=== PATIENT | male | born 1945 | race Caucasian/White ===

== ENCOUNTER 2018-01-15 06:00 | Inpatient (IN) | payer MEDICARE ==
[~2018-01-15] VITALS: Ht 177.8 cm; Wt 85.3 kg
[~2018-01-15 06:00] MED LIST: AMLO5TAB2 PO; ASPI-555 PO; BETA1TAB18 PO; FINA5TAB41 PO; OMEP40CA37 PO; ROSU10TA PO; SOTA80TA PO; WARF4TAB72 PO
[2018-01-15] MEDS ORDERED: SODIUM CHLORIDE 0.9% 1000ML 1,000 ML IV ONE (06:41)
[2018-01-15 07:10] VITALS: BP 135/94
[2018-01-15] MEDS ORDERED: PROPOFOL 10 MG/ML 20ML VIAL IV ONE ×2 (08:10→08:27)
[2018-01-15] MEDS ORDERED: PHENYLEPHRINE HCL 10 MG/ML 1ML VIAL IV ONE (08:24)
[2018-01-15] MEDS ORDERED: SODIUM CHLORIDE 0.9% 10 ML VIAL ONE (08:25)
[2018-01-15 08:43] VITALS: BP 116/84
[2018-01-15 09:13] VITALS: BP 139/92
[2018-01-15] MEDS ORDERED: LACTULOSE 20 GM/30 ML UDCUP PO PRN (11:30)
[2018-01-15] MEDS ORDERED: HYDRALAZINE HCL 20 MG/ML VIAL IV PRN (11:30)
[2018-01-15] MEDS ORDERED: GUAIFENESIN-DM 200/20 MG 10 ML PO PRN (11:30)
[2018-01-15] MEDS ORDERED: ACETAMINOPHEN-CODEINE 300/30MG TAB PO PRN (11:30)
[2018-01-15] MEDS ORDERED: ONDANSETRON HCL 4 MG/2 ML VIAL IV PRN (11:30)
[2018-01-15] MEDS ORDERED: MAG HYDROX/AL HYDROX/SIMETH ES 30 ML SUSP UDCUP PO PRN (11:30)
[2018-01-15] MEDS ORDERED: NITROGLYCERIN 0.4 MG SL TAB SL PRN (11:30)
[2018-01-15] MEDS ORDERED: MORPHINE SULFATE 4 MG/1ML SYG IV PRN (11:30)
[2018-01-15] MEDS ORDERED: ACETAMINOPHEN 325 MG TAB PO PRN ×2 (11:30)
[2018-01-15] MEDS ORDERED: ONDANSETRON HCL MDV 20ML 2 MG/ML VIAL IV PRN (11:44)
[2018-01-15] MEDS ORDERED: DEXTROSE 5 %-0.45 % NACL 1,000 ML IV SCH (12:23)
[2018-01-15 13:23] VITALS: BP 150/99
[2018-01-15] MEDS ORDERED: DIATR MEGLU/DIATRIZOATE SODIUM 30 ML BOTTLE ONE (13:32)
[2018-01-15 14:31] LABS: RETICULOCYTE % (AUTO) 1.43 % (0.42-2.23)
[2018-01-15 14:34] LABS: HEMATOCRIT 39.8 % (36-48); MEAN CORPUSCULAR HEMOGLOBIN 22.5 pg (27.0-33.0); MEAN CORPUSCULAR HGB CONC 31.5 g/dL (32.0-36.0); MEAN CORPUSCULAR VOLUME 71.5 fL (79-99); PLATELET COUNT (AUTO) 277 K/uL (130-400); RED BLOOD CELL COUNT(AUTO) 5.57 MIL/uL (4.00-5.50); RED CELL DISTRIBUTION WIDTH 18.7 % (11.0-15.5); WHITE BLOOD COUNT (AUTO) 10.3 K/uL (4.8-10.8)
[2018-01-15 14:52] LABS: INR 1.18 (0.85-1.15); PARTIAL THROMBOPLASTIN TIME 27.6 SEC (26.3-35.5); PROTHROMBIN TIME 12.4 SEC (9.6-11.6)
[2018-01-15 14:53] LABS: FERRITIN 12 ng/mL (15-150); IRON, SERUM 24 mcg/dL (50-170); TOTAL IRON BINDING CAPACITY 399 mcg/dL (250-450)
[2018-01-15 15:00] LABS: BASOPHILS % (MANUAL) 2 % (0-2); EOSINOPHILS % (MANUAL) 2 % (1-6); LYMPHOCYTES % (MANUAL) 5 % (22-44); MONOCYTES % (MANUAL) 15 % (2-9); SEGMENTED NEUTROPHILS % 76 % (40-70)
[2018-01-15 15:01] LABS: PLATELET MORPHOLOGY COMMENT ADEQUATE
[2018-01-15 15:15] LABS: ALBUMIN 3.8 g/dL (3.5-5.0); BILIRUBIN,TOTAL 0.9 mg/dL (0.2-1.0); CREATININE 0.9 mg/dL (0.5-1.5); POTASSIUM 4.8 mmol/L (3.5-5.1); TOTAL PROTEIN, SERUM 7.3 g/dL (6.0-8.3)
[2018-01-15] MEDS ORDERED: HEPARIN SODIUM 5000UNIT/ML 1ML VIAL ONE (15:42)
[2018-01-15] MEDS ORDERED: HEPARIN 25000 UNITS/250 ML D5W 250 ML IV ONE (15:42)
[2018-01-15 16:00] VITALS: BP 127/82
[2018-01-15] MEDS ORDERED: IOPAMIDOL-370 75 ML VIAL IV ONE (16:18)
[2018-01-15] MEDS ORDERED: LORA0.5T2 PO (16:29)
[2018-01-15 19:00] VITALS: BP 125/80
[2018-01-15] MEDS: FAMOTIDINE/PF 20 MG/2 ML VIAL IV SCH (20:32)
[2018-01-15 21:24] LABS: APPEARANCE,URINE Clear (CLEAR); BILIRUBIN,URINE Negative (NEGATIVE); COLOR,URINE Yellow (YELLOW); GLUCOSE, URINE (UA) Negative (NEGATIVE); KETONES,URINE Negative (NEGATIVE); LEUKOCYTE ESTERASE ,URINE Negative (NEGATIVE); NITRATE,URINE Negative (NEGATIVE); OCCULT BLOOD,URINE Negative (NEGATIVE); PH,URINE 6.5 (5.0-8.0); PROTEIN,URINE Negative (NEGATIVE); UROBILINOGEN,URINE 0.2 mg/dL (0.2-1.0)
[2018-01-15 22:24] LABS: INR 1.24 (0.85-1.15)
[2018-01-15 22:38] LABS: PARTIAL THROMBOPLASTIN TIME 96.8 SEC (26.3-35.5)
[2018-01-16] VITALS: BP 134/78
[2018-01-16 03:46] LABS: HEMATOCRIT 36.1 % (36-48); MEAN CORPUSCULAR HEMOGLOBIN 22.4 pg (27.0-33.0); MEAN CORPUSCULAR HGB CONC 31.7 g/dL (32.0-36.0); MEAN CORPUSCULAR VOLUME 70.5 fL (79-99); PLATELET COUNT (AUTO) 232 K/uL (130-400); RED BLOOD CELL COUNT(AUTO) 5.12 MIL/uL (4.00-5.50); RED CELL DISTRIBUTION WIDTH 18.5 % (11.0-15.5); WHITE BLOOD COUNT (AUTO) 9.8 K/uL (4.8-10.8)
[2018-01-16 04:00] VITALS: BP 136/76
[2018-01-16 04:00] LABS: POTASSIUM 3.4 mmol/L (3.5-5.1)
[2018-01-16 08:00] VITALS: BP 142/88
[2018-01-16] MEDS: FAMOTIDINE/PF 20 MG/2 ML VIAL IV SCH ×2 (08:26→20:33)
[2018-01-16] MEDS: SOTALOL HCL 80 MG TABLET PO SCH ×2 (08:26→20:32)
[2018-01-16] MEDS ORDERED: SOTALOL HCL 80 MG TABLET PO SCH (09:00)
[2018-01-16] MEDS ORDERED: HEPARIN 25000 UNITS/250 ML D5W 250 ML IV ONE (09:47)
[2018-01-16 12:00] VITALS: BP 127/77
[2018-01-16 16:00] VITALS: BP 136/86
[2018-01-16 19:57] VITALS: BP 151/90
[2018-01-16] MEDS: FINASTERIDE 5 MG TABLET PO SCH (20:33)
[2018-01-17] VITALS: BP 132/82
[2018-01-17 04:00] VITALS: BP 128/62
[2018-01-17 05:13] LABS: HEMATOCRIT 35.8 % (36-48); MEAN CORPUSCULAR HEMOGLOBIN 23.2 pg (27.0-33.0); MEAN CORPUSCULAR HGB CONC 33.1 g/dL (32.0-36.0); MEAN CORPUSCULAR VOLUME 70.3 fL (79-99); PLATELET COUNT (AUTO) 207 K/uL (130-400); WHITE BLOOD COUNT (AUTO) 7.1 K/uL (4.8-10.8)
[2018-01-17 05:21] LABS: POTASSIUM 3.4 mmol/L (3.5-5.1)
[2018-01-17 05:23] LABS: BAND NEUTROPHILS % (MANUAL) 6 % (0-2); EOSINOPHILS % (MANUAL) 1 % (1-6); LYMPHOCYTES % (MANUAL) 13 % (22-44); MAN.DIFF COMMENT-IMPRESSION MANUAL DIFFERENTIAL; MONOCYTES % (MANUAL) 13 % (2-9); PLATELET MORPHOLOGY COMMENT ADEQUATE; SEGMENTED NEUTROPHILS % 67 % (40-70)
[2018-01-17] MEDS: HEPARIN 25000 UNITS/250 ML D5W 250 ML IV PRN (05:38)
[2018-01-17 08:44] VITALS: BP 135/85
[2018-01-17] MEDS: [UNRECOGNIZED DRUG - OTHER] PO SCH (09:00)
[2018-01-17] MEDS: LUTEIN PO SCH (09:00)
[2018-01-17] MEDS: SOTALOL HCL 80 MG TABLET PO SCH ×3 (09:00→21:09)
[2018-01-17] MEDS: VIT A C PO SCH (09:00)
[2018-01-17] MEDS: AMLODIPINE BESYLATE 5 MG TAB PO SCH (09:00)
[2018-01-17] MEDS: MINERALS PO SCH (09:00)
[2018-01-17 10:24] LABS: HEMATOCRIT 36.9 % (36-48); MEAN CORPUSCULAR HGB CONC 32.2 g/dL (32.0-36.0); MEAN CORPUSCULAR VOLUME 71.4 fL (79-99); PLATELET COUNT (AUTO) 220 K/uL (130-400); RED BLOOD CELL COUNT(AUTO) 5.16 MIL/uL (4.00-5.50); RED CELL DISTRIBUTION WIDTH 18.6 % (11.0-15.5); WHITE BLOOD COUNT (AUTO) 6.1 K/uL (4.8-10.8)
[2018-01-17] MEDS: FAMOTIDINE/PF 20 MG/2 ML VIAL IV SCH ×2 (10:44→21:09)
[2018-01-17] MEDS: PANTOPRAZOLE SODIUM 40 MG TABLET.DR PO SCH (10:44)
[2018-01-17 11:27] VITALS: BP 139/90
[2018-01-17 15:28] VITALS: BP 132/79
[2018-01-17 16:23] LABS: HEMATOCRIT 37.5 % (36-48)
[2018-01-17 19:00] VITALS: BP 132/80
[2018-01-17] MEDS: FINASTERIDE 5 MG TABLET PO SCH (21:09)
[2018-01-18] VITALS (7 sets, daily range): BP systolic 122–145; BP diastolic 78–92
[2018-01-18 00:26] LABS: HEMATOCRIT 36.3 % (36-48)
[2018-01-18 06:58] LABS: HEMATOCRIT 37.8 % (36-48)
[2018-01-18] MEDS: FAMOTIDINE/PF 20 MG/2 ML VIAL IV SCH ×2 (08:55→19:45)
[2018-01-18] MEDS: SOTALOL HCL 80 MG TABLET PO SCH ×2 (08:56→19:45)
[2018-01-18] MEDS: MINERALS PO SCH (08:56)
[2018-01-18] MEDS: LUTEIN PO SCH (08:56)
[2018-01-18] MEDS: [UNRECOGNIZED DRUG - OTHER] PO SCH (08:56)
[2018-01-18] MEDS: PANTOPRAZOLE SODIUM 40 MG TABLET.DR PO SCH (08:56)
[2018-01-18] MEDS: VIT A C PO SCH (08:56)
[2018-01-18] MEDS: AMLODIPINE BESYLATE 5 MG TAB PO SCH (08:57)
[2018-01-18] MEDS ORDERED: MAGNESIUM CITRATE 296 ML SOLUTION PO SCH (12:00)
[2018-01-18 12:07] LABS: HEMATOCRIT 37.8 % (36-48)
[2018-01-18] MEDS: HEPARIN 25000 UNITS/250 ML D5W 250 ML IV PRN ×2 (12:22→13:58)
[2018-01-18 18:04] LABS: HEMATOCRIT 40.2 % (42-54)
[2018-01-18] MEDS: FINASTERIDE 5 MG TABLET PO SCH (19:45)
[2018-01-18] MEDS ORDERED: ATORVASTATIN CALCIUM 40 MG TABLET PO SCH (21:00)
[2018-01-19] VITALS (25 sets, daily range): BP systolic 99–148; BP diastolic 65–96
[2018-01-19 00:48] LABS: HEMATOCRIT 38.1 % (42-54)
[2018-01-19] MEDS: SOTALOL HCL 80 MG TABLET PO SCH ×2 (05:42→20:22)
[2018-01-19 06:17] LABS: HEMATOCRIT 36.6 % (42-54); MEAN CORPUSCULAR HEMOGLOBIN 22.3 pg (27.0-33.0); MEAN CORPUSCULAR HGB CONC 31.4 g/dL (32.0-36.0); MEAN CORPUSCULAR VOLUME 71.2 fL (79-99); PLATELET COUNT (AUTO) 227 K/uL (130-400); RED BLOOD CELL COUNT(AUTO) 5.14 MIL/uL (4.50-6.20); RED CELL DISTRIBUTION WIDTH 18.7 % (11.0-15.5); WHITE BLOOD COUNT (AUTO) 6.8 K/uL (4.8-10.8)
[2018-01-19 06:23] LABS: POTASSIUM 3.6 mmol/L (3.5-5.1)
[2018-01-19] MEDS: LORAZEPAM 0.5 MG TABLET PO PRN (08:00)
[2018-01-19] MEDS: [UNRECOGNIZED DRUG - OTHER] PO SCH (08:06)
[2018-01-19] MEDS: PANTOPRAZOLE SODIUM 40 MG TABLET.DR PO SCH (08:06)
[2018-01-19] MEDS: VIT A C PO SCH (08:06)
[2018-01-19] MEDS: LUTEIN PO SCH (08:06)
[2018-01-19] MEDS: AMLODIPINE BESYLATE 5 MG TAB PO SCH (08:06)
[2018-01-19] MEDS: MINERALS PO SCH (08:06)
[2018-01-19] MEDS: FAMOTIDINE/PF 20 MG/2 ML VIAL IV SCH (08:08)
[2018-01-19] MEDS ORDERED: LACTATED RINGERS 1000ML 1,000 ML IV ONE (09:26)
[2018-01-19] MEDS ORDERED: CEFOXITIN SODIUM 2 GM VIAL ONE (09:38)
[2018-01-19] MEDS ORDERED: MIDAZOLAM HCL 1 MG/ML 2ML VIAL ONE (09:59)
[2018-01-19] MEDS ORDERED: PROPOFOL 10 MG/ML 20ML VIAL IV ONE (09:59)
[2018-01-19] MEDS ORDERED: GLYCOPYRROLATE 0.2 MG/ML 5 ML VIAL ONE (09:59)
[2018-01-19] MEDS ORDERED: DEXAMETHASONE SOD PHOSPHATE 10MG/ML 1ML VIAL ONE (09:59)
[2018-01-19] MEDS ORDERED: LIDOCAINE PF 2% 5ML ABBOJECT ONE (09:59)
[2018-01-19] MEDS ORDERED: FENTANYL CITRATE PF 50 MCG/1 ML 2ML VIAL ONE ×3 (09:59→12:50)
[2018-01-19] MEDS ORDERED: NEOSTIGMINE 5MG/5ML SYR IV ONE (09:59)
[2018-01-19] MEDS ORDERED: MORPHINE SULFATE 2 MG/ML 1ML SYG IV PRN (13:00)
[2018-01-19 13:29] LABS: MEAN CORPUSCULAR HEMOGLOBIN 22.8 pg (27.0-33.0); MEAN CORPUSCULAR HGB CONC 31.9 g/dL (32.0-36.0); MEAN CORPUSCULAR VOLUME 71.5 fL (79-99); PLATELET COUNT (AUTO) 223 K/uL (130-400); RED CELL DISTRIBUTION WIDTH 18.2 % (11.0-15.5); WHITE BLOOD COUNT (AUTO) 8.1 K/uL (4.8-10.8)
[2018-01-19 13:37] LABS: POTASSIUM 3.6 mmol/L (3.5-5.1)
[2018-01-19] MEDS ORDERED: MEPERIDINE-PF 50 MG/ML SYG ONE (13:39)
[2018-01-19] MEDS: D5W-1/2 NS/20MEQ KCL 1,000 ML IV SCH (14:27)
[2018-01-19] MEDS ORDERED: CEFOXITIN 1GM+NS 100ML 100 ML IV SCH (17:00)
[2018-01-19] MEDS: CEFOXITIN SODIUM 1 GM VIAL IVP SCH ×2 (17:14→23:37)
[2018-01-19] MEDS: MORPHINE SULFATE 4 MG/1ML SYG IV PRN (17:15)
[2018-01-19 18:14] LABS: HEMATOCRIT 38.1 % (42-54)
[2018-01-20] MEDS ORDERED: PHENOL 177 ML BOTTLE PO PRN (00:30)
[2018-01-20] MEDS: D5W-1/2 NS/20MEQ KCL 1,000 ML IV SCH ×2 (02:29→14:48)
[2018-01-20 03:00] VITALS: BP 129/71
[2018-01-20 04:46] LABS: HEMATOCRIT 37.2 % (42-54); LYMPHOCYTES % (AUTO) 5.6 % (21.0-51.0); MEAN CORPUSCULAR HEMOGLOBIN 22.4 pg (27.0-33.0); MEAN CORPUSCULAR HGB CONC 31.4 g/dL (32.0-36.0); MEAN CORPUSCULAR VOLUME 71.4 fL (79-99); MONOCYTES % (AUTO) 5.2 % (3.0-13.0); NEUTROPHILS % (AUTO) 89.2 % (40.0-77.0); PLATELET COUNT (AUTO) 226 K/uL (130-400); RED CELL DISTRIBUTION WIDTH 18.8 % (11.0-15.5); WHITE BLOOD COUNT (AUTO) 23.4 K/uL (4.8-10.8)
[2018-01-20 04:49] LABS: CREATININE 1.1 mg/dL (0.5-1.5); POTASSIUM 3.8 mmol/L (3.5-5.1)
[2018-01-20] MEDS: CEFOXITIN SODIUM 1 GM VIAL IVP SCH (04:50)
[2018-01-20 07:30] VITALS: BP 142/90
[2018-01-20] MEDS: FAMOTIDINE/PF 20 MG/2 ML VIAL IV SCH ×2 (08:40→20:45)
[2018-01-20] MEDS: LORAZEPAM 2 MG/ML 1 ML VIAL IVP PRN ×2 (08:41→18:22)
[2018-01-20] MEDS: METOPROLOL TARTRATE 1 MG/ML 5ML VIAL IV SCH ×3 (08:43→20:53)
[2018-01-20] MEDS: MORPHINE SULFATE 4 MG/1ML SYG IV PRN (10:19)
[2018-01-20 11:00] VITALS: BP 124/80
[2018-01-20 15:00] VITALS: BP 118/81
[2018-01-20 19:35] VITALS: BP_SYST 119; BP_SYST 125; BP_DIAS 69; BP_DIAS 75
[2018-01-20 23:25] VITALS: BP 141/79
[2018-01-21] MEDS: D5W-1/2 NS/20MEQ KCL 1,000 ML IV SCH ×3 (02:23→21:07)
[2018-01-21] MEDS: METOPROLOL TARTRATE 1 MG/ML 5ML VIAL IV SCH ×3 (03:26→14:23)
[2018-01-21 03:40] VITALS: BP 132/82
[2018-01-21 04:43] LABS: BASOPHILS % (AUTO) 0.2 % (0.0-5.0); EOSINOPHILS % (AUTO) 0.1 % (0.0-8.0); HEMATOCRIT 35.2 % (42-54); LYMPHOCYTES % (AUTO) 8.7 % (21.0-51.0); MEAN CORPUSCULAR HEMOGLOBIN 22.9 pg (27.0-33.0); MEAN CORPUSCULAR HGB CONC 32.2 g/dL (32.0-36.0); MEAN CORPUSCULAR VOLUME 71.2 fL (79-99); MONOCYTES % (AUTO) 8.7 % (3.0-13.0); NEUTROPHILS % (AUTO) 82.3 % (40.0-77.0); PLATELET COUNT (AUTO) 215 K/uL (130-400); RED BLOOD CELL COUNT(AUTO) 4.94 MIL/uL (4.50-6.20); RED CELL DISTRIBUTION WIDTH 18.8 % (11.0-15.5); WHITE BLOOD COUNT (AUTO) 18.9 K/uL (4.8-10.8)
[2018-01-21 04:49] LABS: CREATININE 0.9 mg/dL (0.5-1.5); POTASSIUM 4.2 mmol/L (3.5-5.1)
[2018-01-21 08:00] VITALS: BP 152/94
[2018-01-21] MEDS: FAMOTIDINE/PF 20 MG/2 ML VIAL IV SCH ×2 (09:18→21:07)
[2018-01-21] MEDS: LORAZEPAM 2 MG/ML 1 ML VIAL IVP PRN ×2 (09:21→17:15)
[2018-01-21 11:00] VITALS: BP 159/81
[2018-01-21 16:00] VITALS: BP 152/91
[2018-01-21] MEDS ORDERED: METOPROLOL TARTRATE 1 MG/ML 5ML VIAL IV PRN (16:30)
[2018-01-21 19:30] VITALS: BP 156/100
[2018-01-21] MEDS ORDERED: METOPROLOL TARTRATE 1 MG/ML 5ML VIAL IV SCH (20:30)
[2018-01-21 23:25] VITALS: BP 153/91
[2018-01-22] VITALS (12 sets, daily range): BP systolic 126–171; BP diastolic 88–102
[2018-01-22] MEDS ORDERED: METOPROLOL TARTRATE 1 MG/ML 5ML VIAL IV SCH ×2 (02:30→08:30)
[2018-01-22 04:39] LABS: BASOPHILS % (AUTO) 0.3 % (0.0-5.0); EOSINOPHILS % (AUTO) 0.5 % (0.0-8.0); HEMATOCRIT 36.3 % (42-54); LYMPHOCYTES % (AUTO) 17.2 % (21.0-51.0); MEAN CORPUSCULAR HEMOGLOBIN 22.4 pg (27.0-33.0); MEAN CORPUSCULAR HGB CONC 31.7 g/dL (32.0-36.0); MEAN CORPUSCULAR VOLUME 70.6 fL (79-99); MONOCYTES % (AUTO) 11.3 % (3.0-13.0); NEUTROPHILS % (AUTO) 70.7 % (40.0-77.0); NUCLEATED RED BLOOD CELLS 0.1 % (0.0-0.19); PLATELET COUNT (AUTO) 199 K/uL (130-400); RED BLOOD CELL COUNT(AUTO) 5.14 MIL/uL (4.50-6.20); RED CELL DISTRIBUTION WIDTH 18.9 % (11.0-15.5); WHITE BLOOD COUNT (AUTO) 12.7 K/uL (4.8-10.8)
[2018-01-22 04:55] LABS: CREATININE 0.8 mg/dL (0.5-1.5); POTASSIUM 3.8 mmol/L (3.5-5.1)
[2018-01-22] MEDS: D5W-1/2 NS/20MEQ KCL 1,000 ML IV SCH (06:24)
[2018-01-22] MEDS ORDERED: ENALAPRILAT DIHYDRATE 1.25MG/ML 1ML VIAL IV PRN (07:15)
[2018-01-22] MEDS: METOPROLOL TARTRATE 1 MG/ML 5ML VIAL IV SCH ×3 (08:50→21:20)
[2018-01-22] MEDS: FAMOTIDINE/PF 20 MG/2 ML VIAL IV SCH ×2 (08:50→21:20)
[2018-01-22] MEDS: LORAZEPAM 0.5 MG TABLET PO PRN ×2 (09:11→21:28)
[2018-01-22] MEDS: LORAZEPAM 2 MG/ML 1 ML VIAL IVP PRN (09:23)
[2018-01-22 13:44] LABS: INR 1.13 (0.85-1.15); PARTIAL THROMBOPLASTIN TIME 28.5 SEC (26.3-35.5); PROTHROMBIN TIME 11.8 SEC (9.6-11.6)
[2018-01-22] MEDS ORDERED: LIDOCAINE HCL 1% MDV 50ML VIAL ONE (14:40)
[2018-01-22] MEDS ORDERED: HEPARIN SODIUM 1000UNIT/ML 10ML VIAL ONE (14:40)
[2018-01-22] MEDS ORDERED: LIDOCAINE 1%-EPI 1:100,000 20 ML VIAL IJ ONE (15:04)
[2018-01-22] MEDS ORDERED: FENTANYL CITRATE PF 50 MCG/1 ML 2ML VIAL ONE (15:14)
[2018-01-22] MEDS ORDERED: MIDAZOLAM HCL 1 MG/ML 2ML VIAL ONE (15:14)
[2018-01-22] MEDS ORDERED: CEFAZOLIN 1GM / D5W 50ML 50 ML ONE (15:14)
[2018-01-22] MEDS ORDERED: OCTYL 2-CYANOACRYLATE 1 EACH TP ONE (15:25)
[2018-01-23 03:40] VITALS: BP 149/88
[2018-01-23] MEDS: METOPROLOL TARTRATE 1 MG/ML 5ML VIAL IV SCH (03:47)
[2018-01-23 08:00] VITALS: BP 140/91
[2018-01-23] MEDS: ASPIRIN 81 MG EC TAB PO SCH ×2 (09:00→21:04)
[2018-01-23] MEDS: FAMOTIDINE/PF 20 MG/2 ML VIAL IV SCH ×2 (09:00→21:03)
[2018-01-23] MEDS: FINASTERIDE 5 MG TABLET PO SCH (09:00)
[2018-01-23] MEDS: SOTALOL HCL 80 MG TABLET PO SCH ×2 (09:00→21:04)
[2018-01-23] MEDS: AMLODIPINE BESYLATE 5 MG TAB PO SCH (09:00)
[2018-01-23] MEDS ORDERED: ACETAMINOPHEN-CODEINE 300/30MG TAB PO PRN ×2 (11:15)
[2018-01-23] MEDS ORDERED: WARFARIN SODIUM 10 MG TABLET PO SCH (11:15)
[2018-01-23 12:00] VITALS: BP 136/90
[2018-01-23 16:00] VITALS: BP 148/94
[2018-01-23 19:53] VITALS: BP 125/89
[2018-01-23 23:51] VITALS: BP 126/90
[2018-01-24 04:33] VITALS: BP 127/87
[2018-01-24 05:42] LABS: HEMATOCRIT 38.8 % (42-54); MEAN CORPUSCULAR HEMOGLOBIN 22.9 pg (27.0-33.0); MEAN CORPUSCULAR VOLUME 71.7 fL (79-99); PLATELET COUNT (AUTO) 218 K/uL (130-400); RED BLOOD CELL COUNT(AUTO) 5.41 MIL/uL (4.50-6.20); WHITE BLOOD COUNT (AUTO) 8.9 K/uL (4.8-10.8)
[2018-01-24 05:51] LABS: INR 1.22 (0.85-1.15); PARTIAL THROMBOPLASTIN TIME 28.4 SEC (26.3-35.5); PROTHROMBIN TIME 12.8 SEC (9.6-11.6)
[2018-01-24 05:53] LABS: CREATININE 0.8 mg/dL (0.5-1.5); POTASSIUM 3.9 mmol/L (3.5-5.1)
[2018-01-24 07:30] VITALS: BP 129/87
[2018-01-24] MEDS: AMLODIPINE BESYLATE 5 MG TAB PO SCH (09:04)
[2018-01-24] MEDS: ASPIRIN 81 MG EC TAB PO SCH ×2 (09:04→20:47)
[2018-01-24] MEDS: FAMOTIDINE 20MG TAB 20 MG TAB PO SCH ×2 (09:05→20:47)
[2018-01-24] MEDS: FINASTERIDE 5 MG TABLET PO SCH (09:05)
[2018-01-24] MEDS: SOTALOL HCL 80 MG TABLET PO SCH ×2 (09:05→20:47)
[2018-01-24 12:00] VITALS: BP 118/83
[2018-01-24] MEDS ORDERED: WARFARIN SODIUM 10 MG TABLET PO SCH (13:15)
[2018-01-24 16:00] VITALS: BP 136/79
[2018-01-24] MEDS ORDERED: WARFARIN SODIUM 7.5 MG TAB PO SCH (16:00)
[2018-01-24 20:06] VITALS: BP 133/86
[2018-01-25 00:25] VITALS: BP 117/78
[2018-01-25 04:00] VITALS: BP 142/93
[2018-01-25 06:00] LABS: CREATININE 0.9 mg/dL (0.5-1.5); POTASSIUM 3.9 mmol/L (3.5-5.1)
[2018-01-25 06:01] LABS: INR 1.81 (0.85-1.15); PARTIAL THROMBOPLASTIN TIME 29.8 SEC (26.3-35.5); PROTHROMBIN TIME 18.8 SEC (9.6-11.6)
[2018-01-25] MEDS ORDERED: TRAM50TA2 PO (07:02)
[2018-01-25 09:06] VITALS: BP 112/85
[2018-01-25] MEDS: SOTALOL HCL 80 MG TABLET PO SCH (09:25)
[2018-01-25] MEDS: ASPIRIN 81 MG EC TAB PO SCH (09:25)
[2018-01-25] MEDS: AMLODIPINE BESYLATE 5 MG TAB PO SCH (09:25)
[2018-01-25] MEDS: FINASTERIDE 5 MG TABLET PO SCH (09:26)
[2018-01-25] MEDS: FAMOTIDINE 20MG TAB 20 MG TAB PO SCH (09:26)
[2018-01-25 12:31] VITALS: BP 119/74
== END 2018-01-25 12:46 | disposition home or self-care (01) | DRG 330 ==
LOC: DAH 06:00 → ENDO 06:00 → EDSEX 06:01 → DAHIP 06:01 → 3AH 13:15
PROVIDERS: ADMIT Internal Medicine; ATTEND Internal Medicine
PROC: 0JH60WZ Insertion of Totally Implantable Vascular Access Device into Chest Subcutaneous Tissue and Fascia, Open Approach (ICD-10-PCS; principal; 2018-01-15)
PROC: 0D1 Gastrointestinal System, Bypass (ICD-10-PCS; 2018-01-15)
PROC: 0DBP8ZX Excision of Rectum, Via Natural or Artificial Opening Endoscopic, Diagnostic (ICD-10-PCS; 2018-01-15)
PROC: 0DBN8ZX Excision of Sigmoid Colon, Via Natural or Artificial Opening Endoscopic, Diagnostic (ICD-10-PCS; 2018-01-15)
PROC: 02H633Z Insertion of Infusion Device into Right Atrium, Percutaneous Approach (ICD-10-PCS; 2018-01-22)
PROC: B2141ZZ Fluoroscopy of Right Heart using Low Osmolar Contrast (ICD-10-PCS; 2018-01-22)
PROC: B244ZZZ Ultrasonography of Right Heart (ICD-10-PCS; 2018-01-22)
DX: C19 Malignant neoplasm of rectosigmoid junction (principal); K92.1 Melena; K56.609 Unspecified intestinal obstruction, unspecified as to partial versus complete obstruction; I48.91 Unspecified atrial fibrillation; D53.9 Nutritional anemia, unspecified; D50.9 Iron deficiency anemia, unspecified; Z95.3 Presence of xenogenic heart valve; E78.5 Hyperlipidemia, unspecified; I10 Essential (primary) hypertension; F41.9 Anxiety disorder, unspecified; N40.0 Benign prostatic hyperplasia without lower urinary tract symptoms; D72.829 Elevated white blood cell count, unspecified; I25.10 Atherosclerotic heart disease of native coronary artery without angina pectoris; Z79.01 Long term (current) use of anticoagulants; Z95.1 Presence of aortocoronary bypass graft; Z95.0 Presence of cardiac pacemaker; Z90.49 Acquired absence of other specified parts of digestive tract; Z85.038 Personal history of other malignant neoplasm of large intestine; Z80.0 Family history of malignant neoplasm of digestive organs
CPT/HCPCS: 36415; 36561; 74178; 77001; 80048; 80053; 81003; 82378; 82607; 82728; 82746; 85014; 85018; 85025; 85027; 85610; 85730; 88305; 88309; 93005; 99156; 99157; A4218; A4344; A4606; J0690; J0694; J1100; J1644; J2001; J2060; J2175; J2250; J2270; J2370; J2704; J2710; J3010; J3480; J3490; J7030; J7042; J7120; Q9963; Q9967

== ENCOUNTER 2019-02-02 05:30 | Day surgery (SDC) | payer MEDICARE ==
[~2019-02-02] VITALS: Ht 177.8 cm; Wt 83.9 kg
[2019-02-02] VITALS (7 sets, daily range): BP systolic 91–136; BP diastolic 60–95
[~2019-02-02 05:30] MED LIST changes: -AMLO5TAB2 PO; +AMLO5TAB9 PO; +ERGO50CA PO; -ROSU10TA PO; +ROSU10TA22 PO; +UBID100C10 PO; +WARF6TAB49 PO
[2019-02-02] MEDS ORDERED: SODIUM CHLORIDE 0.9% 1000ML 1,000 ML IV ONE (05:41)
[2019-02-02] MEDS ORDERED: PROPOFOL 1000 MG/100 ML 100 ML IV ONE (06:10)
[2019-02-02] MEDS ORDERED: LIDOCAINE HCL 1% 20 ML VIAL ONE (06:11)
[2019-02-02 07:21] LABS: INR 1.21 (0.85-1.15); PROTHROMBIN TIME 12.7 SEC (9.6-11.6)
== END 2019-02-02 09:25 | disposition home or self-care (01) ==
LOC: DAH 05:30 → ENDO 05:30
PROVIDERS: ATTEND Internal Medicine
DX: Z08 Encounter for follow-up examination after completed treatment for malignant neoplasm (principal); K62.4 Stenosis of anus and rectum; K57.30 Diverticulosis of large intestine without perforation or abscess without bleeding; I35.9 Nonrheumatic aortic valve disorder, unspecified; I10 Essential (primary) hypertension; E78.5 Hyperlipidemia, unspecified; F41.9 Anxiety disorder, unspecified; N40.0 Benign prostatic hyperplasia without lower urinary tract symptoms; Z79.01 Long term (current) use of anticoagulants; Z79.899 Other long term (current) drug therapy; Z85.828 Personal history of other malignant neoplasm of skin; Z85.038 Personal history of other malignant neoplasm of large intestine; Z95.0 Presence of cardiac pacemaker; Z98.0 Intestinal bypass and anastomosis status; Z98.890 Other specified postprocedural states
CPT/HCPCS: 36415; 45380; 45386; 85610; 88305; 93005; A4606; J2704; J7030; 45378

== ENCOUNTER 2019-11-14 07:06 | Day surgery (SDC) | payer MEDICARE ==
[~2019-11-14] VITALS: Ht 177.8 cm; Wt 83.5 kg
[~2019-11-14 07:06] MED LIST changes: +AMLO-257 PO; -AMLO5TAB9 PO; -ASPI-555 PO; +ASPI-556 PO; +OMEP40CA13 PO; -OMEP40CA37 PO
[2019-11-14] MEDS ORDERED: SODIUM CHLORIDE 0.9% 1000ML 1,000 ML IV ONE (07:40)
[2019-11-14 07:43] LABS: BASOPHILS % (AUTO) 0.6 % (0.0-5.0); EOSINOPHILS % (AUTO) 2.6 % (0.0-8.0); HEMATOCRIT 44.1 % (42-54); LYMPHOCYTES % (AUTO) 31.6 % (21.0-51.0); MEAN CORPUSCULAR HEMOGLOBIN 24.6 pg (27.0-33.0); MEAN CORPUSCULAR HGB CONC 30.2 g/dL (32.0-36.0); MEAN CORPUSCULAR VOLUME 81.5 fL (79-99); MONOCYTES % (AUTO) 10.8 % (3.0-13.0); NEUTROPHILS % (AUTO) 54.3 % (40.0-77.0); PLATELET COUNT (AUTO) 197 K/uL (130-400); RED BLOOD CELL COUNT(AUTO) 5.41 MIL/uL (4.50-6.20); RED CELL DISTRIBUTION WIDTH 18.6 % (11.0-15.5); WHITE BLOOD COUNT (AUTO) 7.8 K/uL (4.8-10.8)
[2019-11-14 07:55] LABS: CREATININE 0.9 mg/dL (0.5-1.5); POTASSIUM 4.1 mmol/L (3.5-5.1)
[2019-11-14 07:56] LABS: INR 1.3 (0.85-1.15); PARTIAL THROMBOPLASTIN TIME 27.9 SEC (26.3-35.5); PROTHROMBIN TIME 13.9 SEC (9.6-11.6)
--- NOTE | 2019-11-14 08:31 | NUR ---
PROCEDURE PT HERE FOR PORT REMOVAL. DENIES ANY PAIN, SOB AT THIS TIME.
[2019-11-14] MEDS ORDERED: MIDAZOLAM HCL 1 MG/ML 2ML VIAL ONE (11:24)
[2019-11-14] MEDS ORDERED: LIDOCAINE HCL 1% MDV 50ML VIAL ONE (11:24)
[2019-11-14] MEDS ORDERED: FENTANYL CITRATE PF 50 MCG/1 ML 2ML VIAL ONE (11:24)
[2019-11-14] MEDS ORDERED: LIDOCAINE 1%-EPI 1:100,000 20 ML VIAL IJ ONE (11:35)
[2019-11-14] MEDS ORDERED: OCTYL 2-CYANOACRYLATE 1 EACH TP ONE (11:58)
== END 2019-11-14 13:22 | disposition home or self-care (01) ==
LOC: DAH 07:06
PROVIDERS: ATTEND Internal Medicine
DX: Z45.2 Encounter for adjustment and management of vascular access device (principal); G62.2 Polyneuropathy due to other toxic agents; I48.91 Unspecified atrial fibrillation; I10 Essential (primary) hypertension; E78.5 Hyperlipidemia, unspecified; F41.9 Anxiety disorder, unspecified; Z85.820 Personal history of malignant melanoma of skin; Z92.21 Personal history of antineoplastic chemotherapy; Z85.038 Personal history of other malignant neoplasm of large intestine; Z90.49 Acquired absence of other specified parts of digestive tract; Z95.0 Presence of cardiac pacemaker; Z98.890 Other specified postprocedural states; Z79.82 Long term (current) use of aspirin; Z79.01 Long term (current) use of anticoagulants; Z79.899 Other long term (current) drug therapy
CPT/HCPCS: 36415; 36590; 77001; 80048; 85025; 85610; 85730; A4215; A4216; A4221; A4222; A4223 ×3; A4606; A4663; J1644; J2250; J3010; J3490 ×2; J7030; 99156

== ENCOUNTER → 2020-06-13 | Outpatient (CLI) | payer MEDICARE ==
[~2020-06-13] MED LIST changes: -AMLO-257 PO; +AMLO5TAB9 PO
== END | disposition home or self-care (01) ==
LOC: RAH 08:48
PROVIDERS: ATTEND Internal Medicine Cardiovascular Disease
DX: I07.1 Rheumatic tricuspid insufficiency (principal); I48.0 Paroxysmal atrial fibrillation; I10 Essential (primary) hypertension; E78.5 Hyperlipidemia, unspecified; Z95.3 Presence of xenogenic heart valve; R55 Syncope and collapse
CPT/HCPCS: 93306; 93356

== ENCOUNTER → 2021-02-06 | Outpatient (CLI) | payer SELFPAY ==
[~2021-02-06] MED LIST changes: +AMLO-257 PO; -AMLO5TAB9 PO
== END | disposition home or self-care (01) ==
LOC: OIH 10:05
PROVIDERS: ATTEND Internal Medicine Cardiovascular Disease
DX: Z13.6 Encounter for screening for cardiovascular disorders (principal)
CPT/HCPCS: 75571

== ENCOUNTER → 2021-04-01 | Outpatient (CLI) | payer MEDICARE ==
[~2021-04-01] MED LIST changes: -OMEP40CA13 PO; +OMEP40CA21 PO
== END | disposition home or self-care (01) ==
LOC: SHCH 08:14
PROVIDERS: ATTEND Internal Medicine Cardiovascular Disease
DX: I08.8 Other rheumatic multiple valve diseases (principal)
CPT/HCPCS: 93306; 93356

== ENCOUNTER → 2023-02-25 | Outpatient (CLI) | payer MEDICARE | END | disposition home or self-care (01) | LOC: SHCH 10:42 | PROVIDERS: ATTEND Internal Medicine Cardiovascular Disease | DX: I08.8 Other rheumatic multiple valve diseases (principal); I48.19 Other persistent atrial fibrillation; I77.810 Thoracic aortic ectasia; I11.9 Hypertensive heart disease without heart failure; E78.5 Hyperlipidemia, unspecified; Z95.0 Presence of cardiac pacemaker; Z95.2 Presence of prosthetic heart valve | CPT/HCPCS: 93306 ==